=== PATIENT | female | born 1955 | race Caucasian/White ===

== ENCOUNTER 2023-11-28 05:45 | Day surgery (SDC) | payer BC ==
[2023-11-28] MEDS: Lactated Ringers 1,000 ML IV SCH (06:28)
[2023-11-28 06:35] VITALS: PULSE 72; TEMP 99.2; O2SAT 98
[2023-11-28] MEDS ORDERED: Versed 2 MG/2 ML Injection ONE (07:34)
[2023-11-28] MEDS ORDERED: DIPRIVAN 200 MG/20 ML IV ONE ×2 (07:34→07:55)
--- NOTE | 2023-11-28 08:32 | OP ---
SURGERY DATE/TIME: 11/28/2023 0739 PREOPERATIVE DIAGNOSIS: Screening colonoscopy. POSTOPERATIVE DIAGNOSES: 1) Colon polyps x2. 2) Sigmoid diverticulosis. PROCEDURE: Colonoscopy. SURGEON: Markel Qureshi M.D. ANESTHESIA: MAC by Prosper Cochran CRNA. ESTIMATED BLOOD LOSS: Minimal. SPECIMENS: Two hot forceps polypectomies one from the cecum and one from the sigmoid colon. DESCRIPTION OF PROCEDURE: After informed written consent was obtained, the patient was taken to the endoscopy suite. She had anesthesia was titrated to desired level of consciousness. Digital rectal exam showed normal sphincter tone and no internal lesions. The scope was inserted into the rectum and sequentially the entire colonic mucosa was traversed. The level of cecum was reached and verified with direct visualization of the ileocecal valve. There is a small sessile polyp in the cecum, which was grasped with forceps, cauterized and removed in its entirety with minimal blood loss and sent for pathology testing. Upon withdrawal no other abnormalities were encountered until the sigmoid colon was reached. There was another small, flat sessile polyp in the proximal sigmoid colon, which was grasped with forceps, cauterized and sent for pathology testing. There was scattered diverticula mostly in the sigmoid colon with no evidence of bleeding or other abnormalities. Prior to withdrawal, retroflexion showed no internal lesions. The scope was removed. The patient was transferred to the recovery room in good condition. She has been advised to follow up in a week for pathology results.
[2023-11-28 08:39] VITALS: BP 152/80; RESP 16
== END 2023-11-28 08:57 | disposition home or self-care (01) ==
LOC: SDC 05:45
PROVIDERS: ATTEND Family Medicine
DX: Z12.11 Encounter for screening for malignant neoplasm of colon (principal); D12.0 Benign neoplasm of cecum; K57.30 Diverticulosis of large intestine without perforation or abscess without bleeding
CPT/HCPCS: J2250; J2704